=== PATIENT | male | born 1990 | race Caucasian/White ===

== ENCOUNTER → 2020-01-21 15:35 | Outpatient (CLI) | payer OTHER, SELFPAY ==
--- NOTE | ~2020-01-21 | US_ITS ---
EXAMINATION: US soft tissue abdomen INDICATION: Periumbilical abdominal pain, history of hernia repair TECHNIQUE: Targeted ultrasound is performed in the area of clinical concern. COMPARISON: None available FINDINGS: No definite soft tissue abnormality is identified. In addition, no definite hernia is seen. Shadowing at the umbilicus slightly limits evaluation of the region immediately deep to the umbilicu s. IMPRESSION: 1. No definite abnormality identified. Reviewed, dictated and finalized at location A.
== END ==
PROVIDERS: Visit Provider Surgery
DX: R10.33 Periumbilical pain (principal)
CPT/HCPCS: 76705